=== PATIENT | female | born 1990 | race Caucasian/White ===

== ENCOUNTER → 2017-11-20 | Outpatient (CLI) | payer OTHER ==
[~2017-11-20] MED LIST: CONRAY-43 43% 50ML VIAL (Q9960) As Ordered; PROHANCE 279.3MG/ML 15ML VIAL (A9576) As Ordered
== END ==
LOC: M RADPRO 06:32
DX: M25.551 Pain in right hip (principal)
CPT/HCPCS: 27093

== ENCOUNTER → 2019-09-18 | Outpatient (REF) | payer OTHER, MEDICAID ==
[~2019-09-18] MED LIST changes: +ACET500C PO; -CONRAY-43 43% 50ML VIAL (Q9960) As Ordered; +INSUR SC; +MOTR200T44 PO; +NYST1POW9 TOP; +PRENTAB55 PO; -PROHANCE 279.3MG/ML 15ML VIAL (A9576) As Ordered
== END ==
LOC: M SFHCWAGY 17:20
PROVIDERS: ATTEND Nurse Practitioner Women's Health
DX: Z12.4 Encounter for screening for malignant neoplasm of cervix (principal); B37.3 Candidiasis of vulva and vagina

== ENCOUNTER → 2019-09-29 | Outpatient (CLI) | payer OTHER ==
--- NOTE | 2019-09-29 22:58 | REP ---
Clinical: Irregular menstrual cycles. Technique: Transabdominal pelvic ultrasound. Findings: Normal bladder measures approximately 16.2 x 5.5 x 12.0 cm Anteverted uterus measures 14.5 x 4.1 x 6.3 cm. Endometrial complex measures 6.5 mm thickness. Anterior subserosal fibroid measures 1.2 x 0.6 x 1.4 cm. Bilateral ovaries are normal in appearance and vascularity with few scattered cysts/follicles. Right ovary measures 3.3 x 2.3 x 2.2 cm and includes 1.2 cm presumed physiologic cyst / follicle. Left ovary measures 3.5 x 1.7 x 1.8 cm and includes 1.3 cm and 1.0 cm presumed physiologic cyst / follicle. No pelvic fluid or adnexal mass lesion. Impression: 1. Anteverted uterus with 1.4 cm anterior fibroid. Electronically Signed by Kel Schrader MD 09/29/2019 10:49 P
== END ==
LOC: M WHC 08:54
PROVIDERS: ATTEND Nurse Practitioner Women's Health
DX: N85.5 Inversion of uterus (principal); D25.9 Leiomyoma of uterus, unspecified; N92.6 Irregular menstruation, unspecified

== ENCOUNTER → 2021-04-19 | Outpatient (REF) | payer OTHER | LOC: M SFHCCLAY 14:18 | PROVIDERS: ATTEND Nurse Practitioner Family | DX: Z20.822 Contact with and (suspected) exposure to COVID-19 (principal) ==

== ENCOUNTER 2021-05-20 09:07 | Outpatient (CLI) | payer OTHER ==
[~2021-05-20] VITALS: Ht 160 cm; Wt 127.4 kg
[~2021-05-20 09:07] MED LIST changes: +ALBUTEROL 90 MCG/ACT 8GM HFA INHALER INH PRN; +ALBUTEROL SULFATE 2.5 MG/0.5 ML INH NEB SOLN INH PRN; +CASIRIVIMAB (REGN10933) 600 MG, IMDEVIMAB (REGN10987) 600 MG in NS 250 ML IV ONE; +EPINEPHrine INJ 1 MG/ML 1ML AMP IM PRN; +NS 1,000 ML IV SCH; +diphenhydrAMINE 50MG/ML VIAL (J1200) IV PRN; +methylPREDNISolone 125MG 2ML VIAL IV PRN
[2021-05-20 09:55] VITALS: BP 149/94
[2021-05-20 10:22] VITALS: BP 140/88
[2021-05-20 11:05] VITALS: BP 128/89
[2021-05-20 12:03] VITALS: BP 130/87
== END 2021-05-20 12:06 | disposition home or self-care (01) ==
LOC: M OPCLI4PR 09:07
PROVIDERS: ATTEND Physician Assistant
DX: U07.1 COVID-19 (principal); Z88.0 Allergy status to penicillin; Z88.6 Allergy status to analgesic agent

== ENCOUNTER → 2021-06-06 | Outpatient (REF) | payer OTHER ==
[~2021-06-06] MED LIST changes: -ALBUTEROL 90 MCG/ACT 8GM HFA INHALER INH PRN; -ALBUTEROL SULFATE 2.5 MG/0.5 ML INH NEB SOLN INH PRN; -CASIRIVIMAB (REGN10933) 600 MG, IMDEVIMAB (REGN10987) 600 MG in NS 250 ML IV ONE; -EPINEPHrine INJ 1 MG/ML 1ML AMP IM PRN; -NS 1,000 ML IV SCH; -diphenhydrAMINE 50MG/ML VIAL (J1200) IV PRN; -methylPREDNISolone 125MG 2ML VIAL IV PRN
[2021-06-06 11:55] LABS: BLOOD UREA NITROGEN 10 MG/DL (7-18); CALCIUM LEVEL 8.7 MG/DL (8.5-10.1); CARBON DIOXIDE LEVEL 28 MEQ/L (21-32); CHLORIDE LEVEL 103 MEQ/L (98-107); CREATININE FOR GFR 0.77 MG/DL (0.55-1.30); GLOMERULAR FILTRATION RATE > 60.0 (>60); GLUCOSE, FASTING 158 MG/DL (70-100); POTASSIUM SERUM 4.4 MEQ/L (3.5-5.1); SODIUM LEVEL 138 MEQ/L (136-145)
[2021-06-06 12:07] LABS: HEMOGLOBIN A1c 6.9 %
== END ==
LOC: M SFHCCLAY 08:41
PROVIDERS: ATTEND Family Medicine
DX: R19.8 Other specified symptoms and signs involving the digestive system and abdomen (principal); E11.9 Type 2 diabetes mellitus without complications

== ENCOUNTER → 2021-09-28 | Outpatient (CLI) | payer OTHER | LOC: M RAD 06:40 | PROVIDERS: ATTEND Internal Medicine Gastroenterology | DX: R11.0 Nausea (principal) ==

== ENCOUNTER → 2021-10-14 | Outpatient (CLI) | payer OTHER ==
[~2021-10-14] MED LIST changes: +ACET-683 PO; +METF10004 PO; +METF500T13 PO; +OZEM2INJ SC; +VITMTA PO
== END ==
LOC: M LABSMTC 09:37
PROVIDERS: ATTEND Anesthesiology
DX: Z01.812 Encounter for preprocedural laboratory examination (principal); Z20.822 Contact with and (suspected) exposure to COVID-19

== ENCOUNTER 2021-10-18 07:06 | Day surgery (SDC) | payer OTHER ==
[~2021-10-18] VITALS: Ht 160 cm; Wt 132.9 kg
[~2021-10-18 07:06] MED LIST changes: +NS 1,000 ML IV ONE
[2021-10-18] MEDS ORDERED: propofoL 200 MG/20 ML VIAL As Ordered ONE (08:51)
[2021-10-18] MEDS ORDERED: LIDOCAINE 2% 100MG/5ML SDV (FOR ANES.) As Ordered ONE (08:51)
[2021-10-18 09:24] VITALS: BP 127/72
== END 2021-10-18 09:26 | disposition home or self-care (01) ==
LOC: M OPP 07:06
PROVIDERS: ATTEND Internal Medicine Gastroenterology
DX: D12.5 Benign neoplasm of sigmoid colon (principal); K57.30 Diverticulosis of large intestine without perforation or abscess without bleeding; K64.8 Other hemorrhoids; K58.2 Mixed irritable bowel syndrome; K21.00 Gastro-esophageal reflux disease with esophagitis, without bleeding; R11.0 Nausea; R12 Heartburn; E11.9 Type 2 diabetes mellitus without complications; D64.9 Anemia, unspecified; Z79.84 Long term (current) use of oral hypoglycemic drugs; Z88.0 Allergy status to penicillin; Z88.5 Allergy status to narcotic agent; Z80.1 Family history of malignant neoplasm of trachea, bronchus and lung; Z80.0 Family history of malignant neoplasm of digestive organs; Z80.42 Family history of malignant neoplasm of prostate

== ENCOUNTER → 2021-10-25 | Outpatient (REF) | payer OTHER ==
[~2021-10-25] MED LIST changes: -NS 1,000 ML IV ONE
[2021-10-25 11:31] LABS: HEMATOCRIT 38.3 % (36.0-47.0); HEMOGLOBIN 12.7 g/dl (12.0-15.5); MEAN CORPUSCULAR HEMOGLOBIN 28.7 pg (27.0-33.0); MEAN CORPUSCULAR HGB CONC 33.2 g/dl (32.0-36.5); MEAN CORPUSCULAR VOLUME 86.5 fl (80.0-96.0); PLATELET COUNT, AUTOMATED 283 10^3/uL (150-450); RED BLOOD COUNT 4.43 10^6/uL (4.00-5.40); WHITE BLOOD COUNT 8.6 10^3/uL (4.0-10.0)
[2021-10-25 12:14] LABS: FREE T4 1.21 NG/DL (0.76-1.46); THYROID STIMULATING HORMONE 1.09 uIU/ML (0.358-3.740)
== END ==
LOC: M SFHCCLAY 08:20
PROVIDERS: ATTEND Family Medicine
DX: N91.2 Amenorrhea, unspecified (principal); R63.5 Abnormal weight gain; R53.83 Other fatigue

== ENCOUNTER → 2021-11-28 | Outpatient (CLI) | payer OTHER | LOC: M RAD 07:43 | PROVIDERS: ATTEND Internal Medicine Gastroenterology | DX: K82.8 Other specified diseases of gallbladder (principal) | CPT/HCPCS: 78227; A9537 ==

== ENCOUNTER → 2022-02-13 | Outpatient (REF) | payer OTHER ==
[2022-02-13 17:24] LABS: HEMATOCRIT 40.5 % (36.0-47.0); HEMOGLOBIN 13.4 g/dl (12.0-15.5); IRON (FE) 108 UG/DL (50-170); MEAN CORPUSCULAR HEMOGLOBIN 28.8 pg (27.0-33.0); MEAN CORPUSCULAR HGB CONC 33.1 g/dl (32.0-36.5); MEAN CORPUSCULAR VOLUME 87.1 fl (80.0-96.0); PERCENT SATURATION 28.5 % (13.2-45.0); PLATELET COUNT, AUTOMATED 314 10^3/uL (150-450); RED BLOOD COUNT 4.65 10^6/uL (4.00-5.40); TOTAL IRON BINDING CAPACITY 379 UG/DL (250-450); WHITE BLOOD COUNT 9.5 10^3/uL (4.0-10.0)
[2022-02-13 18:10] LABS: HEPATITIS B SURFACE ANTIGEN NEGATIVE (NEGATIVE)
[2022-02-13 18:37] LABS: HEPATITIS B CORE ANTIBODY IGM NEGATIVE (NEGATIVE); HEPATITIS C VIRUS ABY INDEX < 0.0 INDEX (<0.8)
[2022-02-16 16:08] LABS: ANCA-ATYPICAL <1:20 titer (Neg:<1:20); ANTI-MITOCHONDRIAL ANTIBODY <20.0 Units (0.0-20.0); ANTINUCLEAR ANTIBODIES DIRECT Negative (Negative); CYTOPLASMIC NEUTROP AB ANCA-C <1:20 titer (Neg:<1:20); LIVER-KIDNEY MICROSOMAL ABY <20.1 Units (0.0-20.0); PERINUCLEAR AB ANCA-P <1:20 titer (Neg:<1:20)
== END ==
LOC: M LABDRAWC 16:56
PROVIDERS: ATTEND Physician Assistant Medical
DX: R16.0 Hepatomegaly, not elsewhere classified (principal)

== ENCOUNTER → 2022-04-06 | Outpatient (REF) | payer OTHER ==
[2022-04-06 12:12] LABS: HEMATOCRIT 33.5 % (36.0-47.0); HEMOGLOBIN 10.7 g/dl (12.0-15.5); MEAN CORPUSCULAR HEMOGLOBIN 27.9 pg (27.0-33.0); MEAN CORPUSCULAR HGB CONC 31.9 g/dl (32.0-36.5); MEAN CORPUSCULAR VOLUME 87.5 fl (80.0-96.0); PLATELET COUNT, AUTOMATED 344 10^3/uL (150-450); RED BLOOD COUNT 3.83 10^6/uL (4.00-5.40); WHITE BLOOD COUNT 11.6 10^3/uL (4.0-10.0)
[2022-04-06 12:27] LABS: ALBUMIN 3.1 GM/DL (3.2-5.2); ALT/SGPT 23 U/L (12-78); BILIRUBIN,TOTAL 0.3 MG/DL (0.2-1.0); BLOOD UREA NITROGEN 10 MG/DL (7-18); CALCIUM LEVEL 8.7 MG/DL (8.5-10.1); CARBON DIOXIDE LEVEL 28 MEQ/L (21-32); CHLORIDE LEVEL 103 MEQ/L (98-107); CHOLESTEROL LEVEL 168 MG/DL (<200); CHOLESTEROL RISK RATIO 4.421 (<5); CREATININE FOR GFR 0.79 MG/DL (0.55-1.30); GLOMERULAR FILTRATION RATE > 60.0 (>60); GLUCOSE, FASTING 179 MG/DL (70-100); HDL CHOLESTEROL 38 MG/DL (>40); LDL CHOLESTEROL 92 MG/DL (<100); NON-HDL-C 130 MG/DL; POTASSIUM SERUM 4.5 MEQ/L (3.5-5.1); SODIUM LEVEL 133 MEQ/L (136-145); TOTAL PROTEIN 6.5 GM/DL (6.4-8.2); TRIGLYCERIDES LEVEL 188 MG/DL (<150)
[2022-04-06 12:39] LABS: HEMOGLOBIN A1c 7.2 %
[2022-04-06 13:12] LABS: CREATININE, URINE 27.7 MG/DL; MALB URINE SIEMENS 14.6 MG/L; MAU/CREAT RATIO 52.7 MCG/MG (0.0-30.0)
[2022-04-07 11:08] LABS: FERRITIN 6 NG/ML (8-252); IRON (FE) 36 UG/DL (50-170); PERCENT SATURATION 7.4 % (13.2-45.0); TOTAL IRON BINDING CAPACITY 484 UG/DL (250-450)
[2022-04-07 11:49] LABS: VITAMIN B12 LEVEL 308 PG/ML (247-911)
[2022-04-08 07:11] LABS: FOLATE 12.5 ng/mL (>3.0)
== END ==
LOC: M SFHCCLAY 08:32
PROVIDERS: ATTEND Nurse Practitioner Family
DX: E11.9 Type 2 diabetes mellitus without complications (principal); E66.01 Morbid (severe) obesity due to excess calories; D64.9 Anemia, unspecified

== ENCOUNTER → 2022-05-16 | Outpatient (CLI) | payer OTHER | LOC: M RAD 06:56 | PROVIDERS: ATTEND Physician Assistant Medical | DX: R16.0 Hepatomegaly, not elsewhere classified (principal) ==

== ENCOUNTER → 2022-07-06 | Outpatient (CLI) | payer OTHER | LOC: M CLY 07:52 | PROVIDERS: ATTEND Nurse Practitioner Family | DX: R06.2 Wheezing (principal) ==

== ENCOUNTER → 2022-07-13 | Outpatient (CLI) | payer OTHER | LOC: M CLY 09:24 | PROVIDERS: ATTEND Family Medicine | DX: R05.2 Subacute cough (principal) ==

== ENCOUNTER → 2022-09-15 | Outpatient (REF) | payer OTHER ==
[2022-09-15 18:36] LABS: HEMOGLOBIN 11.3 g/dl (12.0-15.5); MEAN CORPUSCULAR HEMOGLOBIN 24.4 pg (27.0-33.0); MEAN CORPUSCULAR HGB CONC 30.5 g/dl (32.0-36.5); MEAN CORPUSCULAR VOLUME 79.7 fl (80.0-96.0); PLATELET COUNT, AUTOMATED 363 10^3/uL (150-450); RED BLOOD COUNT 4.64 10^6/uL (4.00-5.40); WHITE BLOOD COUNT 11.1 10^3/uL (4.0-10.0)
[2022-09-15 19:17] LABS: ALBUMIN 3.3 G/DL (3.2-5.2); ALKALINE PHOSPHATASE 87 U/L (46-116); ALT/SGPT 19 U/L (7.0-40); AST/SGOT 15 U/L (<34); BILIRUBIN,TOTAL 0.3 MG/DL (0.3-1.2); BLOOD UREA NITROGEN 8 MG/DL (9-23); CALCIUM LEVEL 8.4 MG/DL (8.5-10.1); CARBON DIOXIDE LEVEL 28 MMOL/L (20-31); CHLORIDE LEVEL 103 MMOL/L (98-107); CREATININE FOR GFR 0.63 MG/DL (0.55-1.30); GLOMERULAR FILTRATION RATE > 60.0 (>60); GLUCOSE, FASTING 214 MG/DL (60-100); POTASSIUM SERUM 4.3 MMOL/L (3.5-5.1); SODIUM LEVEL 139 MMOL/L (136-145); TOTAL PROTEIN 6.7 G/DL (5.7-8.2)
== END ==
LOC: M SFHCCLAY 15:21
PROVIDERS: ATTEND Nurse Practitioner Family
DX: R05.1 Acute cough (principal)

== ENCOUNTER → 2022-09-19 | Outpatient (CLI) | payer OTHER | LOC: M CLY 08:26 | PROVIDERS: ATTEND Nurse Practitioner Family | DX: J40 Bronchitis, not specified as acute or chronic (principal) ==

== ENCOUNTER → 2023-06-06 | Outpatient (REF) | payer OTHER, MEDICAID | LOC: M SFHCCLAY 11:45 | PROVIDERS: ATTEND Nurse Practitioner Family | DX: Z01.84 Encounter for antibody response examination (principal) ==

== ENCOUNTER → 2023-07-06 | Outpatient (CLI) | payer OTHER | LOC: M RAD 09:28 | PROVIDERS: ATTEND Physician Assistant Medical | DX: K76.0 Fatty (change of) liver, not elsewhere classified (principal); R16.0 Hepatomegaly, not elsewhere classified ==

== ENCOUNTER → 2023-11-20 | Outpatient (REF) | payer MEDICAID, OTHER ==
[2023-11-20 18:33] LABS: BLOOD UREA NITROGEN 8 MG/DL (9-23); CALCIUM LEVEL 8.9 MG/DL (8.5-10.1); CARBON DIOXIDE LEVEL 29 MMOL/L (20-31); CHLORIDE LEVEL 103 MMOL/L (98-107); CREATININE FOR GFR 0.63 MG/DL (0.55-1.30); GLOMERULAR FILTRATION RATE > 60.0 (>60); GLUCOSE, FASTING 179 MG/DL (60-100); POTASSIUM SERUM 4.6 MMOL/L (3.5-5.1); SODIUM LEVEL 138 MMOL/L (136-145)
== END ==
LOC: M SFHCCLAY 09:47
PROVIDERS: ATTEND Nurse Practitioner Family
DX: E11.9 Type 2 diabetes mellitus without complications (principal)

== ENCOUNTER → 2024-01-31 | Outpatient (CLI) | payer OTHER, MEDICAID | LOC: M CLY 11:43 | PROVIDERS: ATTEND Nurse Practitioner Family | DX: M43.16 Spondylolisthesis, lumbar region (principal); M25.552 Pain in left hip ==

== ENCOUNTER → 2024-02-21 | Outpatient (CLI) | payer OTHER | LOC: M CLY 09:14 | PROVIDERS: ATTEND Nurse Practitioner Family | DX: J06.9 Acute upper respiratory infection, unspecified (principal) ==

== ENCOUNTER → 2024-02-21 | Outpatient (CLI) | payer OTHER, MEDICAID | LOC: M CLY 09:09 | PROVIDERS: ATTEND Nurse Practitioner Family | DX: J06.9 Acute upper respiratory infection, unspecified (principal) ==

== ENCOUNTER → 2024-04-01 | Outpatient (REF) | payer OTHER ==
[2024-04-01 11:46] LABS: HEMOGLOBIN A1c 8.1 % (4.0-6.0)
[2024-04-01 11:53] LABS: ALBUMIN 3.4 G/DL (3.2-5.2); ALKALINE PHOSPHATASE 91 U/L (46-116); ALT/SGPT 13 U/L (7.0-40); AST/SGOT 9 U/L (<34); BILIRUBIN,TOTAL 0.4 MG/DL (0.3-1.2); BLOOD UREA NITROGEN 6 MG/DL (9-23); CALCIUM LEVEL 8.7 MG/DL (8.5-10.1); CARBON DIOXIDE LEVEL 27 MMOL/L (20-31); CHLORIDE LEVEL 106 MMOL/L (98-107); CHOLESTEROL LEVEL 177 MG/DL (<200); CHOLESTEROL RISK RATIO 4.23 (<5); CREATININE FOR GFR 0.72 MG/DL (0.55-1.30); GLOMERULAR FILTRATION RATE > 60.0 (>60); GLUCOSE, FASTING 131 MG/DL (60-100); HDL CHOLESTEROL 41.8 MG/DL (>40); LDL CHOLESTEROL 102.4 MG/DL (<100); NON-HDL-C 135.2 MG/DL; POTASSIUM SERUM 4.3 MMOL/L (3.5-5.1); SODIUM LEVEL 138 MMOL/L (136-145); TOTAL PROTEIN 6.4 G/DL (5.7-8.2); TRIGLYCERIDES LEVEL 164 MG/DL (<150)
== END ==
LOC: M SFHCCLAY 09:11
PROVIDERS: ATTEND Nurse Practitioner Family
DX: F41.8 Other specified anxiety disorders (principal); E11.9 Type 2 diabetes mellitus without complications

== ENCOUNTER → 2024-07-29 | Outpatient (CLI) | payer OTHER ==
[~2024-07-29] MED LIST changes: +METHACHOLINE KIT (6 VIAL.NEB PREMIX) INH ONE; +NYST1POW3 TOP; -NYST1POW9 TOP
== END ==
LOC: M CARPUL 07:37
PROVIDERS: ATTEND Nurse Practitioner Adult Health
DX: R06.02 Shortness of breath (principal)
CPT/HCPCS: 94070; 95070; J7674

== ENCOUNTER → 2024-08-06 | Outpatient (REF) | payer OTHER ==
[~2024-08-06] MED LIST changes: -METHACHOLINE KIT (6 VIAL.NEB PREMIX) INH ONE
[2024-08-06 18:13] LABS: HEMOGLOBIN A1c 7.2 % (4.0-6.0)
[2024-08-06 18:21] LABS: ALBUMIN 3.3 G/DL (3.2-5.2); ALKALINE PHOSPHATASE 85 U/L (35-104); ALT/SGPT 11 U/L (7.0-40); AST/SGOT < 8 U/L (<34); BILIRUBIN,TOTAL 0.3 MG/DL (0.3-1.2); BLOOD UREA NITROGEN 11 MG/DL (9-23); CALCIUM LEVEL 8.6 MG/DL (8.5-10.1); CARBON DIOXIDE LEVEL 27 MMOL/L (20-31); CHLORIDE LEVEL 107 MMOL/L (98-107); CHOLESTEROL LEVEL 189 MG/DL (<200); CREATININE FOR GFR 0.61 MG/DL (0.55-1.30); GLOMERULAR FILTRATION RATE > 60.0 (>60); GLUCOSE, FASTING 256 MG/DL (60-100); LDL CHOLESTEROL 95.6 MG/DL (<100); POTASSIUM SERUM 4.6 MMOL/L (3.5-5.1); SODIUM LEVEL 140 MMOL/L (136-145); TOTAL PROTEIN 6.4 G/DL (5.7-8.2); TRIGLYCERIDES LEVEL 212 MG/DL (<150)
== END ==
LOC: M SFHCCLAY 09:45
PROVIDERS: ATTEND Nurse Practitioner Family
DX: E11.9 Type 2 diabetes mellitus without complications (principal)

== ENCOUNTER → 2025-02-10 | Outpatient (CLI) | payer OTHER ==
[2025-02-10 08:30] LABS: PLATELET COUNT, AUTOMATED 374 10^3/uL (150-450)
[2025-02-10 08:53] LABS: IRON (FE) 13.0 UG/DL (50-170); PERCENT SATURATION 3.3 % (13.2-45.0)
== END ==
LOC: M LAB 07:59
PROVIDERS: ATTEND Physician Assistant Medical
DX: D50.9 Iron deficiency anemia, unspecified (principal)

== ENCOUNTER → 2025-03-09 | Outpatient (CLI) | payer OTHER | LOC: M RAD 15:30 | PROVIDERS: ATTEND Nurse Practitioner Family | DX: N92.0 Excessive and frequent menstruation with regular cycle (principal) ==

== ENCOUNTER 2025-03-26 09:10 | Outpatient (CLI) | payer OTHER ==
[~2025-03-26] VITALS: Ht 160 cm; Wt 118.0 kg
[~2025-03-26 09:10] MED LIST changes: +ALBUTEROL SULFATE 2.5 MG/0.5 ML INH CONCENTRATE NEB SOLN INH PRN; +EPINEPHrine INJ 1 MG/ML 1ML AMP IM PRN; +diphenhydrAMINE 50 MG/ML VIAL IV PRN
[2025-03-26 09:35] VITALS: BP 122/77; O2SAT 99
[2025-03-26] MEDS: IRON SUCROSE 300 MG in NS 250 ML OVER 90 MIN. IV ONE (09:46)
[2025-03-26 11:55] VITALS: BP 115/99; O2SAT 100
== END 2025-03-26 11:55 | disposition home or self-care (01) ==
LOC: M INFU 09:10
PROVIDERS: ATTEND Nurse Practitioner Family
DX: D50.9 Iron deficiency anemia, unspecified (principal); Z88.0 Allergy status to penicillin; Z88.5 Allergy status to narcotic agent
CPT/HCPCS: 96365; 96366; J1756

== ENCOUNTER 2025-04-02 09:02 | Outpatient (CLI) | payer OTHER ==
[~2025-04-02] VITALS: Ht 160 cm; Wt 118.2 kg
[2025-04-02] MEDS: IRON SUCROSE 300 MG in NS 250 ML IV ONE (10:08)
[2025-04-02 10:11] VITALS: BP 120/68; O2SAT 100
[2025-04-02 11:55] VITALS: BP 131/80; O2SAT 99
== END 2025-04-02 12:00 | disposition home or self-care (01) ==
LOC: M INFU 09:02
PROVIDERS: ATTEND Nurse Practitioner Family
DX: D50.9 Iron deficiency anemia, unspecified (principal); Z88.0 Allergy status to penicillin; Z88.5 Allergy status to narcotic agent
CPT/HCPCS: 96365; 96366; J1756

== ENCOUNTER → 2025-05-01 | Outpatient (REF) | payer OTHER ==
[~2025-05-01] MED LIST changes: -ALBUTEROL SULFATE 2.5 MG/0.5 ML INH CONCENTRATE NEB SOLN INH PRN; -EPINEPHrine INJ 1 MG/ML 1ML AMP IM PRN; -diphenhydrAMINE 50 MG/ML VIAL IV PRN
[2025-05-01 12:53] LABS: BASO # 0.0 10^3/uL (0.0-0.2); BASO % 0.3 % (0.0-1.0); EOS # 0.2 10^3/uL (0.0-0.5); EOS % 1.7 % (0.0-3.0); LYMPH # 2.4 10^3/uL (1.5-5.0); LYMPH % 26.1 % (24.0-44.0); MONO # 0.6 10^3/uL (0.0-0.8); MONO % 6.7 % (2.0-8.0); NEUTROPHILS # 5.9 10^3/uL (1.5-8.5); NEUTROPHILS % 64.8 % (36.0-66.0); PLATELET COUNT, AUTOMATED 294 10^3/uL (150-450)
[2025-05-01 12:55] LABS: IRON (FE) 58 UG/DL (50-170); PERCENT SATURATION 15.1 % (13.2-45.0)
[2025-05-01 12:56] LABS: ALT/SGPT 10 U/L (7.0-40); AST/SGOT 11 U/L (<34); CALCIUM LEVEL 8.6 MG/DL (8.5-10.1); CARBON DIOXIDE LEVEL 24 MMOL/L (20-31); CHLORIDE LEVEL 106 MMOL/L (98-107); CHOLESTEROL LEVEL 180 MG/DL (<200); CHOLESTEROL RISK RATIO 3.93 (<5); CREATININE FOR GFR 0.68 MG/DL (0.55-1.30); GLOMERULAR FILTRATION RATE > 90.0 (>60); LDL CHOLESTEROL 112.6 MG/DL (<100); NON-HDL-C 134.2 MG/DL; POTASSIUM SERUM 4.5 MMOL/L (3.5-5.1); SODIUM LEVEL 141 MMOL/L (136-145); TRIGLYCERIDES LEVEL 108 MG/DL (<150)
[2025-05-01 13:21] LABS: ESTIMATED AVERAGE GLUCOSE 134.0 MG/DL (60-110)
== END ==
LOC: M SFHCCLAY 08:23
PROVIDERS: ATTEND Nurse Practitioner Family
DX: D64.9 Anemia, unspecified (principal); F41.8 Other specified anxiety disorders; E11.9 Type 2 diabetes mellitus without complications; K76.0 Fatty (change of) liver, not elsewhere classified